=== PATIENT | female | born 1955 | race Asian ===

== ENCOUNTER → 2025-01-20 09:45 | Outpatient (REF) | payer MEDICARE, SELFPAY | LOC: DHSLP 09:45 | PROVIDERS: ATTENDING PHYSICIAN Internal Medicine Cardiovascular Disease; FAMILY PHYSICIAN Family Medicine | DX: G47.33 Obstructive sleep apnea (adult) (pediatric) (principal); G47.00 Insomnia, unspecified | CPT/HCPCS: 95810 ==